=== PATIENT | female | born 1960 | race Caucasian/White ===

== ENCOUNTER 2016-06-11 08:06 | Emergency (ER) | payer MEDICARE ==
[~2016-06-11] VITALS: Ht 165.1 cm; Wt 77.6 kg
[~2016-06-11 08:06] MED LIST: BENZ2AMP4 PO; TRAZ50TA18; TRIF10TA PO; ZIPR80CA2 PO
[2016-06-11 08:07] VITALS: BP 140/96
== END 2016-06-11 08:35 | disposition home or self-care (01) ==
LOC: ED 08:28
DX: K02.9 Dental caries, unspecified (principal); F20.9 Schizophrenia, unspecified
CPT/HCPCS: 99283

== ENCOUNTER 2019-02-22 09:31 | Emergency (ER) | payer MEDICARE ==
[~2019-02-22] VITALS: Ht 165.1 cm; Wt 76.4 kg
[~2019-02-22 09:31] MED LIST changes: +BENZ0.5T35 PO; -TRAZ50TA18; +TRAZ50TA66
[2019-02-22 10:10] VITALS: BP 129/78
[2019-02-22] MEDS ORDERED: PARO7.5C2 PO (10:15)
[2019-02-22] MEDS ORDERED: DEUT9TAB PO (10:16)
[2019-02-22] MEDS ORDERED: AMOXICILLIN 500 MG CAPSULE PO ONE (10:30)
[2019-02-22] MEDS ORDERED: AMOXICILLIN 500 MG CAPSULE ONE (10:47)
== END 2019-02-22 10:54 | disposition home or self-care (01) ==
LOC: ED 10:30
DX: K08.89 Other specified disorders of teeth and supporting structures (principal)
CPT/HCPCS: 99283

== ENCOUNTER 2019-03-21 10:20 | Emergency (ER) | payer MEDICARE ==
[~2019-03-21] VITALS: Ht 165.1 cm; Wt 75.9 kg
[~2019-03-21 10:20] MED LIST changes: +DEUT9TAB PO; +PARO7.5C2 PO
[2019-03-21 11:05] VITALS: BP 166/96
[2019-03-21] MEDS ORDERED: DEXAMETHASONE 4 MG TABLET ONE (11:51)
[2019-03-21] MEDS ORDERED: DIPHENHYDRAMINE 25 MG CAPSULE ONE (11:51)
[2019-03-21] MEDS ORDERED: DEXAMETHASONE 4 MG TABLET PO ONE (12:00)
[2019-03-21] MEDS ORDERED: DIPHENHYDRAMINE 25 MG CAPSULE PO ONE (12:00)
--- NOTE | 2019-03-21 12:40 | NUR ---
Patient given discharge instructions and they have confirmed that they understand the instructions. Patient ambulatory with steady gait.
== END 2019-03-21 12:41 | disposition home or self-care (01) ==
LOC: ED 12:36
DX: R21 Rash and other nonspecific skin eruption (principal); T78.49XA Other allergy, initial encounter; K08.89 Other specified disorders of teeth and supporting structures; F17.200 Nicotine dependence, unspecified, uncomplicated; X58.XXXA Exposure to other specified factors, initial encounter
CPT/HCPCS: 99283; Q0163

== ENCOUNTER 2019-08-09 14:13 | Emergency (ER) | payer MEDICARE ==
[~2019-08-09] VITALS: Ht 165.1 cm; Wt 76.9 kg
[2019-08-09 14:40] VITALS: BP 129/83
--- NOTE | 2019-08-09 14:59 | NUR ---
TO [facility] FROM LOBBY
--- NOTE | 2019-08-09 15:14 | NUR ---
PT RESTING IN GOWN IN [facility] AT THIS TIME; AWAITING ERP. PT EDUCATED ON ER PROCESS AND VERBALIZES UNDERSTANDING. PT WITH CALL LIGHT WITHIN REACH AT THIS TIME.
--- NOTE | 2019-08-09 16:53 | NUR ---
PT D/C WITH D/C SUMMARY AND SCRIPTS. ALL QUESTIONS ANSWERED. PT AMBULATES TO REGISTRATION DESK WITH STEADY GAIT FOR D/C HOME. PT DENIES ANY OTHER NEEDS PERTAINING TO THIS VISIT.
== END 2019-08-09 16:58 | disposition home or self-care (01) ==
LOC: ED 16:45
DX: G25.1 Drug-induced tremor (principal); F20.0 Paranoid schizophrenia
CPT/HCPCS: 99282